=== PATIENT | female | born 1995 | race Two or more races ===

== ENCOUNTER → 2021-03-29 | Outpatient (CLI) | payer OTHER ==
[~2021-03-29] MED LIST: FERR325T14 PO; IBUP-1027 PO
== END ==
LOC: LAB 13:34
PROVIDERS: ATTEND Obstetrics & Gynecology
DX: Z01.812 Encounter for preprocedural laboratory examination (principal); Z20.822 Contact with and (suspected) exposure to COVID-19
CPT/HCPCS: U0003; U0005

== ENCOUNTER 2021-04-01 06:11 | Inpatient (IN) | payer OTHER ==
[~2021-04-01] VITALS: Ht 162.6 cm; Wt 99.3 kg
[2021-04-01] MEDS ORDERED: OXYTOCIN 30 UNIT/500 ML PREMIX 500 ML IV PRN ×5 (06:30→16:30)
[2021-04-01] MEDS ORDERED: ACETAMINOPHEN 325 MG TABLET. PO PRN ×3 (06:30→16:30)
[2021-04-01] MEDS ORDERED: TERBUTALINE 1 MG/ML VIAL. SQ PRN ×2 (06:30→09:15)
[2021-04-01] MEDS ORDERED: 0.9 % SODIUM CHLORIDE 10 ML DISP.SYRIN. IV PRN ×2 (06:30→16:30)
[2021-04-01] MEDS ORDERED: LIDOCAINE 1% PF 30 ML VIAL. INJ PRN ×2 (06:30→09:15)
[2021-04-01] MEDS ORDERED: IV RINGERS,LACTATED 1000ML 1,000 ML IV SCH ×2 (06:30→09:15)
[2021-04-01] MEDS ORDERED: BUTORPHANOL 2 MG/ML VIAL. IVP PRN ×4 (06:30→09:15)
[2021-04-01] MEDS ORDERED: OXYTOCIN PREMIX 30 UNIT/500 ML NS BAG. IV ONE (07:10)
[2021-04-01 08:29] LABS: BASO % 0 % (0-3); EOS # 0.1 x10^3/uL (0.0-0.7); EOS % 1 % (0-3); HEMATOCRIT 33.8 % (36.0-47.0); HEMOGLOBIN 11.2 g/dL (12.0-15.5); LYMPH # 2.9 x10^3/uL (1.0-4.8); LYMPH % 25 % (24-48); MEAN CORPUSCULAR HEMOGLOBIN 30 pg (25-35); MEAN CORPUSCULAR HGB CONC 33 g/dL (31-37); MEAN CORPUSCULAR VOLUME 91 fL (79-100); MONO # 0.6 x10^3/uL (0.0-1.1); MONO % 6 % (0-9); NEUT # 8.1 x10^3/uL (1.8-7.7); NEUT % 69 % (31-73); PLATELET COUNT 211 x10^3/uL (140-400); RED BLOOD COUNT 3.71 x10^6/uL (3.50-5.40); WHITE BLOOD COUNT 11.7 x10^3/uL (4.0-11.0)
--- NOTE | 2021-04-01 09:11 | PDOC1 ---
EXECUTIVE ADMINISTRATIVE ASSISTANT H&P Date of Admission: Date of Admission: Apr 01, 2021 at 06:11 History of Present Illness: EDC: 04/01/21 LMP: unk 25y @ 40.0 by 24wk u/s presents for scheduled indxn. The pt has had a relatively uncomplicated . PMH: Denies PSH: Denies Meds: PNV, Fe All: NKDA OBHx: TSVD x 1, SAB x 1 SH: no tob, no etOH FH: asthma Allergies: Coded Allergies: No Known Allergies (Verified Allergy, Unknown, 04/01/21) Physical Exam: PE: GENERAL: No apparent distress. Alert and oriented. HEENT: Head normocephalic, atraumatic. NECK: Supple LUNGS: Clear to auscultation. HEART: RRR, S1, S2 present, pulses intact ABDOMEN: Soft, positive bowel sounds. EXTREMITIES: No cyanosis or edema. NEUROLOGIC: Normal speech, normal tone PSYCHIATRIC: Normal affect, normal mood. SKIN: No ulceration. FHT: 130s +acels/no decels/mLTV [facility]: 1-2 min SVE: /H Labs: Laboratory Tests Test 04/01/21 08:19 White Blood Count 11.7 x10^3/uL (4.0-11.0) H Red Blood Count 3.71 x10^6/uL (3.50-5.40) Hemoglobin 11.2 g/dL (12.0-15.5) L Hematocrit 33.8 % (36.0-47.0) L Mean Corpuscular Volume 91 fL (79-100) Mean Corpuscular Hemoglobin 30 pg (25-35) Mean Corpuscular Hemoglobin Concent 33 g/dL (31-37) Red Cell Distribution Width 14.0 % (11.5-14.5) Platelet Count 211 x10^3/uL (140-400) Neutrophils (%) (Auto) 69 % (31-73) Lymphocytes (%) (Auto) 25 % (24-48) Monocytes (%) (Auto) 6 % (0-9) Eosinophils (%) (Auto) 1 % (0-3) Basophils (%) (Auto) 0 % (0-3) Neutrophils # (Auto) 8.1 x10^3/uL (1.8-7.7) H Lymphocytes # (Auto) 2.9 x10^3/uL (1.0-4.8) Monocytes # (Auto) 0.6 x10^3/uL (0.0-1.1) Eosinophils # (Auto) 0.1 x10^3/uL (0.0-0.7) Basophils # (Auto) 0.0 x10^3/uL (0.0-0.2) Laboratory Tests 04/01/21 08:19 Laboratory Tests 04/01/21 08:19 Assessment & Plan: A/P 25y @ 40.0 by 24wk u/s 1.) Indxn on Pit 2.) Elevated GTT - 0 of 4 values of 3hr GTT 3.) TDAP given 01/09/21 4.) Covid vaccine #1 (01/09/21) 5.) Anemia - Hgb 0.6 6.) Fetus cat I FHT 7.) GBS neg CLARENCE CHAPARRO MD Apr 01, 2021 09:11
[2021-04-01 10:32] LABS: BILIRUBIN,URINE NEGATIVE (NEG); CLARITY,URINE CLEAR; COLOR,URINE YELLOW; NITRITE,URINE NEGATIVE (NEG); PH,URINE 6.5 (<5.0-8.0); PROTEIN,URINE NEGATIVE (NEG-TRACE); UROBILINOGEN,URINE 0.2 mg/dL (0.2 mg/dL)
--- NOTE | 2021-04-01 10:50 | RAD ---
EXAM: US OB Limited CLINICAL HISTORY: postion only COMPARISON: None available. TECHNIQUE: Limited transabdominal ultrasound of the uterus was performed. FINDINGS/ IMPRESSION: 1. Imaging was performed for positioning only. 2. Single live intrauterine gestation is seen in cephalic presentation with heart rate of 139 bpm. Electronically signed by: Hayden Kerns MD (04/01/2021 10:48 AM) [id number]
[2021-04-01 11:01] LABS: BACTERIA,URINE FEW /HPF (0-FEW)
[2021-04-01] MEDS ORDERED: fentaNYL PF VIAL 100 MCG/2 ML VIAL EPID ONE (12:00)
[2021-04-01] MEDS ORDERED: ONDANSETRON PF 4 MG/2 ML VIAL. IV PRN (12:00)
[2021-04-01] MEDS ORDERED: NALOXONE 0.4 MG/ML VIAL. IV PRN (12:00)
[2021-04-01] MEDS ORDERED: IV RINGERS,LACTATED 1000ML 1,000 ML IV ONE (12:00)
[2021-04-01] MEDS ORDERED: L&D EPIDURAL SYRINGE 50 ML EPID PRN (12:00)
[2021-04-01] MEDS ORDERED: ePHEDrine PF IN SALINE 50 MG/10 ML SYRINGE. IV PRN (12:00)
[2021-04-01] MEDS ORDERED: ROPIVacaine 0.2% PF 10 ML VIAL. ONE ×2 (12:01→12:10)
[2021-04-01] MEDS ORDERED: L&D EPIDURAL 50 ML SYRINGE. ONE (12:10)
[2021-04-01] MEDS ORDERED: BUPIVACAINE MPF 0.25% 30 ML VIAL. ONE (14:05)
[2021-04-01] MEDS ORDERED: HYDROCORTISONE 1% TOPICAL OINTMENT 30GM TUBE. TP PRN (16:30)
[2021-04-01] MEDS ORDERED: ZOLPIDEM 5 MG TABLET. PO PRN (16:30)
[2021-04-01] MEDS ORDERED: MAG HYDROX/ALUMINUM HYD/SIMETH 30 ML ORAL.SUSP PO PRN (16:30)
[2021-04-01] MEDS ORDERED: TDaP (Adacel) per PROTOCOL. MC PRN (16:30)
[2021-04-01] MEDS ORDERED: MMR per PROTOCOL. MC PRN (16:30)
[2021-04-01] MEDS ORDERED: PHENYLEPH/MINERAL OIL/PETROLAT RECTAL OINTMENT TUBE. RC PRN (16:30)
[2021-04-01] MEDS ORDERED: BENZOCAINE 20% TOPICAL AEROSOL SPRAY 57GM CAN. TP PRN (16:30)
[2021-04-01] MEDS ORDERED: SIMETHICONE 80 MG TAB.CHEW PO PRN (16:30)
[2021-04-01] MEDS ORDERED: MAGNESIUM HYDROXIDE 2,400 MG/30 ML ORAL.SUSP. PO PRN (16:30)
[2021-04-01] MEDS ORDERED: diphenhydrAMINE HCL 25 MG CAPSULE PO PRN (16:30)
[2021-04-01] MEDS ORDERED: oxyCODONE/APAP 5/325 1 TAB TABLET PO PRN (16:30)
--- NOTE | 2021-04-01 16:33 | PDOC4 ---
VAGINAL DELIVERY DATE DATE: 04/01/21 TIME: 16:32 TIME Patient delivered a viable male infant over intact perineum at 1608. Wt 8 lb 6.7 oz. Apgars 8/9. Placenta delivered spontaneously, intact with 3VC. 2nd degree laceration repaired in nml fashion with 20 vicryl. Good hemostasis noted. 20 U of Pit given with IVF. EBL 300 cc. WEIGHT Weight [ ] CLARENCE CHAPARRO MD Apr 01, 2021 16:33
[2021-04-01] MEDS: IBUPROFEN 400 MG TABLET. PO PRN (18:39)
[2021-04-01 19:30] VITALS: BP 116/58
[2021-04-01 23:00] VITALS: BP 108/58
[2021-04-02] MEDS: IBUPROFEN 400 MG TABLET. PO PRN ×2 (01:31→09:48)
[2021-04-02 03:05] VITALS: BP 107/58
[2021-04-02 07:40] LABS: HEMOGLOBIN 10.4 g/dL (12.0-15.5); RED BLOOD COUNT 3.42 x10^6/uL (3.50-5.40); RED CELL DISTRIBUTION WIDTH 13.9 % (11.5-14.5); WHITE BLOOD COUNT 11.2 x10^3/uL (4.0-11.0)
[2021-04-02] MEDS ORDERED: FERROUS SULFATE 325 MG TABLET. PO SCH (08:00)
[2021-04-02] MEDS: DOCUSATE SODIUM 100 MG CAPSULE. PO PRN (09:48)
[2021-04-02] MEDS: PRENATAL MULTIVITAMIN TABLET. PO SCH (09:48)
--- NOTE | 2021-04-02 10:18 | PDOC ---
CS ASSOCIATE PROGRESS NOTE Date of Service: DATE: 04/02/21 TIME: 08:00 Subjective: Doing well. Reports mild cramping with , otherwise denies complaints. Pain well managed with PO meds. Tolerates activity without complaints. Objective: Objective: Appears well, in NAD. at present. Breast: filling. Nipples: intact - reports mild soreness, LC at bedside for assessment and assistance. FF @ U, scant lochia. Vital Signs: Vital Signs Date Time Temp Pulse Resp B/P (MAP) Pulse Ox O2 Delivery O2 Flow Rate FiO2 04/01/21 15:24 18 98 Room Air 04/01/21 19:30 99.6 109 116/58 (77) 99.6 Vital Signs Date Time Temp Pulse Resp B/P (MAP) Pulse Ox O2 Delivery O2 Flow Rate FiO2 04/02/21 07:46 Room Air 04/02/21 03:05 98.8 87 18 107/58 (74) 98.8 04/01/21 15:24 98 Labs: Laboratory Tests Test 04/02/21 06:40 White Blood Count 11.2 x10^3/uL (4.0-11.0) H Red Blood Count 3.42 x10^6/uL (3.50-5.40) L Hemoglobin 10.4 g/dL (12.0-15.5) L Hematocrit 31.0 % (36.0-47.0) L Mean Corpuscular Volume 91 fL (79-100) Mean Corpuscular Hemoglobin 30 pg (25-35) Mean Corpuscular Hemoglobin Concent 34 g/dL (31-37) Red Cell Distribution Width 13.9 % (11.5-14.5) Platelet Count 168 x10^3/uL (140-400) Laboratory Tests 04/02/21 06:40 Laboratory Tests 04/02/21 06:40 Physical Exam: GENERAL: No apparent distress. Alert and oriented. HEENT: Head normocephalic, atraumatic. NECK: Supple LUNGS: Clear to auscultation. HEART: RRR, S1, S2 present, pulses intact ABDOMEN: Soft, positive bowel sounds. EXTREMITIES: No cyanosis or edema. NEUROLOGIC: Normal speech, normal tone PSYCHIATRIC: Normal affect, normal mood. SKIN: No ulceration. Assessment & Plan: PPD # 1 s/p . . Routine PP course. Anticipate d/c home tomorrow. Pt. v/u of all. EZEQUIEL DE LA ROSA CNM Apr 02, 2021 10:18
[2021-04-02 12:30] VITALS: BP 111/63
[2021-04-02 16:26] VITALS: BP_SYST 98
[2021-04-02 18:46] VITALS: BP 118/59
[2021-04-02 22:30] VITALS: BP 133/65
[2021-04-03] MEDS: IBUPROFEN 400 MG TABLET. PO PRN ×2 (01:57→09:32)
[2021-04-03] MEDS: DOCUSATE SODIUM 100 MG CAPSULE. PO PRN (01:57)
[2021-04-03 06:40] VITALS: BP 125/60
--- NOTE | 2021-04-03 09:21 | PDOC ---
IT CONSULTING MANAGER PROGRESS NOTE Date of Service: DATE: 04/03/21 TIME: 09:15 Subjective: Doing well. Mild uterine cramping with . Otherwise denies complaints. Discomfort well managed with IBU. Objective: Objective: independently. Breast filling. Nipples intact. FFNT U-1. Scant lochia. Vital Signs: Vital Signs Date Time Temp Pulse Resp B/P (MAP) Pulse Ox O2 Delivery O2 Flow Rate FiO2 04/02/21 07:46 Room Air 04/02/21 12:30 98.0 93 18 111/63 (79) 99 98.0 Vital Signs Date Time Temp Pulse Resp B/P (MAP) Pulse Ox O2 Delivery O2 Flow Rate FiO2 04/03/21 06:40 98.3 95 16 125/60 (81) Room Air 98.3 04/02/21 18:46 99 Physical Exam: GENERAL: No apparent distress. Alert and oriented. HEENT: Head normocephalic, atraumatic. NECK: Supple LUNGS: Clear to auscultation. HEART: RRR, S1, S2 present, pulses intact ABDOMEN: Soft, positive bowel sounds. EXTREMITIES: No cyanosis or edema. NEUROLOGIC: Normal speech, normal tone PSYCHIATRIC: Normal affect, normal mood. SKIN: No ulceration. Assessment & Plan: PPD#2 1.) 2.) 2nd degree lac, repaired 3.) s/p TDAP 01/09/21 4.) s/p Covid vaccine #1 (01/09/21) 5.) Anemia - continue FeSO4 6.) EZEQUIEL DE LA ROSA CNM Apr 03, 2021 09:21
[2021-04-03] MEDS: PRENATAL MULTIVITAMIN TABLET. PO SCH (09:32)
[2021-04-03] MEDS ORDERED: FERR325T14 PO (09:33)
[2021-04-03] MEDS ORDERED: IBUP-1027 PO (09:33)
[2021-04-03 09:50] VITALS: BP 111/59
[2021-04-03] MEDS ORDERED: FLU VACC QUAD 21-22 (6MOS+) PF 0.5 ML SYRINGE. VAX IM ONE (13:45)
[2021-04-03 15:25] VITALS: BP 122/69
--- NOTE | 2021-04-03 15:51 | NUR ---
Pt. dc'd to home, ambulated to personal car. Written and verbal DC instructions given to pt., v/u. Pt. plans to follow-up with [facility] in 6 weeks as scheduled.
--- NOTE | 2021-04-03 18:48 | DS ---
DATE OF DISCHARGE: 04/03/2021 ADMISSION DIAGNOSES: 1. Intrauterine at 40 weeks and 0 days by 24-week ultrasound. 2. Induction of labor. 3. Elevated GTT with normal 3-hour GTT. 4. Status post Tdap. 5. Status post one shot of the COVID vaccine. 6. Anemia. 7. GBS negative. DISCHARGE DIAGNOSES: 1. Intrauterine at 40 weeks and 0 days by 24-week ultrasound. 2. Induction of labor. 3. Elevated GTT with normal 3-hour GTT. 4. Status post Tdap. 5. Status post one shot of the COVID vaccine. 6. Anemia. 7. GBS negative. PROCEDURE: Spontaneous vaginal delivery. BRIEF HOSPITAL COURSE: The patient is a 25-year-old 3, para 1-0-1-1 who presented to Labor and Delivery at 40 weeks and 0 days by a 24-week ultrasound for scheduled induction. The patient was started on Pitocin that morning. At that time, her cervix was dilated to 1 cm. The patient progressed throughout the day and ultimately delivered by vaginal delivery. See delivery note for full detail. By day #2, the patient was meeting all discharge criteria and subsequently discharged home. Of note, the patient's hemoglobin on admission was 11.2 and after discharge was found to be 10.4. DISCHARGE INSTRUCTIONS: The patient was told not to lift anything greater than 20 pounds, have pelvic rest for 6 weeks, not to drive on narcotics. CALL IF: The patient was to call if she had fevers, chills, nausea, vomiting, abdominal pain or any additional questions or concerns. FOLLOWUP APPOINTMENT: The patient was to follow up in 6 weeks' time. The patient was given an appointment card with the date and time. DISCHARGE MEDICATIONS: The patient was given a prescription for Motrin 800 mg, 30 pills and then ferrous sulfate 325 mg, [address]: Lenny TID: [id number]
== END 2021-04-03 15:45 | disposition home or self-care (01) | DRG 807 ==
LOC: 3 SO LND 06:11
PROVIDERS: ADMIT Obstetrics & Gynecology; ATTEND Obstetrics & Gynecology
PROC: 10E0XZZ Delivery of Products of Conception, External Approach (ICD-10-PCS; principal; 2021-04-01)
PROC: 0KQM0ZZ Repair Perineum Muscle, Open Approach (ICD-10-PCS; 2021-04-01)
DX: O99.02 Anemia complicating childbirth (principal); Z37.0 Single live birth; D64.9 Anemia, unspecified; Z3A.40 40 weeks gestation of pregnancy; O70.1 Second degree perineal laceration during delivery; Z82.5 Family history of asthma and other chronic lower respiratory diseases
CPT/HCPCS: 36415; 76815; 81001; 85025; 85027; 86592; 86850; 86900; 86901; 87086; 90471; 90686; A6258; C1755; J2590; J2795; J3010; J3490; J7120; G0378; Q0163